=== PATIENT | female | born 1980 | race African-American/Black ===

== ENCOUNTER 2016-09-22 10:34 | Emergency (ER) | payer BC ==
[~2016-09-22 10:34] MED LIST: ADDER10 PO; MULTIPLE VIT PO
== END 2016-09-22 10:35 | disposition home or self-care (01) ==
LOC: ER 10:34
DX: H10.213 Acute toxic conjunctivitis, bilateral (principal)
CPT/HCPCS: 99282; A9270-GY

== ENCOUNTER 2016-11-25 03:55 | Emergency (ER) | payer BC | END 2016-11-25 05:15 | disposition home or self-care (01) | LOC: ER 03:55 | DX: H10.213 Acute toxic conjunctivitis, bilateral (principal); Z79.899 Other long term (current) drug therapy | CPT/HCPCS: 99283; A9270-GY ==